=== PATIENT | male | born 1995 | race Caucasian/White ===

== ENCOUNTER 2018-06-30 20:36 | Emergency (ER) | payer OTHER ==
[2018-06-30 20:44] VITALS: BP 108/72
--- NOTE | 2018-06-30 20:53 | EDPHY ---
H & P Stated Complaint: hemmoroids flare up Source: Patient Exam Limitations: No limitations - Personal History Current Tetanus/Diphtheria Vaccine: Yes Current Tetanus Diphtheria and Acellular Pertussis (TDAP): Yes - Medical/Surgical History Hx Asthma: No Hx Chronic Respiratory Disease: No Hx Diabetes: No Hx Cardiac Disease: No Hx Renal Disease: No Hx Cirrhosis: No Hx Alcoholism: No Hx HIV/AIDS: No Hx Splenectomy or Spleen Trauma: No - Social History Smoking Status: Current some day smoker Time Seen by Provider: 06/30/18 20:52 HPI/ROS: HPI: This is a 23-year-old male who presents with Chief Complaint: Hemorrhoid flare up Location: RECTAL Quality: Pain Duration: 2 days Signs and Symptoms: no fever, no nausea, no vomiting, no hematemesis, no blood in stool, no abdominal bloating, no diarrhea, no back pain, no urinary symptoms , no testicular/groin pain, no indigestion, no chest pain, no shortness of breath Timing: Acute, common Severity: Moderate Context: Patient reports that he has a history of anal fissures as a child but he grew out of it when he hit puberty presents with 2 day history of external hemorrhoid flare up. He is a student at [employer]. He had a bowel movement yesterday without any difficulty. He reports that it hurts to touch the area and to sit down. He has not tried any vneg-xip-ttaegrl medications. No primary care provider in the area Modifying Factors: None Comment: ROS: A comprehensive 10 system review of systems is otherwise negative aside from elements mentioned in the history of present illness. MEDICAL/SURGICAL/SOCIAL HISTORY: Medical history: Generally healthy. Does not take any regular medications. Surgical history: Denies Social history: Current every day smoker. Originally from [place]. Family history noncontributory. CONSTITUTIONAL: Nontoxic-appearing adult male, awake and alert, no obvious distress HEENT: Atraumatic and normocephalic, PERRL, EOMI. Nares patent; no rhinorrhea; no nasal mucosal edema. Tympanic membranes clear. Oropharynx clear, no exudate and moist pink mucosa. Airway patent. No lymphadenopathy. No meningismus. Cardiovascular: Normal S1/S2, tachycardia, regular rhythm, without murmur rub or gallop. PULMONARY/CHEST: Symmetrical and nontender. Clear to auscultation bilaterally. Good air movement. No accessory muscle usage. ABDOMEN: Soft, nondistended, nontender, no rebound, no guarding, no peritoneal signs, no masses or organomegaly. No CVAT. RECTAL: Good sphincter tone, light brown stool in vault, 3 o'clock small external cchextchdb-lpxqavzyjklje-gy bleeding, no fissures, no palpable masses, guaiac negative EXTREMITIES: 2/2 pulses, strength 5/5, no deformities, no clubbing, no cyanosis or edema. NEUROLOGICAL: no focal neuro deficits. GCS 15. SKIN: Warm and dry, no erythema. no rash. Good capillary refill. (Maribell Guerin) Constitutional: Initial Vital Signs Temperature (C) 36.8 C 06/30/18 20:42 Heart Rate 112 H 06/30/18 20:42 Respiratory Rate 16 06/30/18 20:42 Blood Pressure 108/72 06/30/18 20:42 O2 Sat (%) 97 06/30/18 20:42 O2 Delivery Mode Room Air Allergies/Adverse Reactions: No Known Allergies Allergy (Unverified 06/30/18 21:10) Home Medications: Medication Instructions Recorded Hydrocortisone/Pramoxine 1 neel RC Q6 PRN #1 btl 06/30/18 [Proctofoam-Hc Foam] Medical Decision Making ED Course/Re-evaluation: One external hemorrhoid present; non thrombosed; nonbleeding. Let topical applied and given a prescription for Proctofoam. Advised to prevent constipation. Guaiac negative. Given general surgery consult. This patient was seen under the supervision of my secondary supervising physician. I evaluated care for this patient independently. Discussed this patient with Dr. Ordoñez. (Maribell Guerin) The patient was evaluated and managed by the physician foundation assistant. I have reviewed this chart and I agree with the findings and plan of care as documented , as indicated by my signature. I am the secondary supervising physician. ( Cherie Ordoñez) Differential Diagnosis: Differential diagnosis includes but is not limited to anal fissure, internal hemorrhoids, thrombosed hemorrhoids, pilonidal cyst, rectal abscess. (Maribell Guerin) - Data Points Medications Given: Discontinued Medications Tetracaine/Epinephrine/Lidocaine (Let Gel Topical) 1 ea TP EDNOW ONE Stop: 06/30/18 20:59 Last Admin: 10/25/18 21:12 Dose: 1 ea Tetracaine/Epinephrine/Lidocaine (Let Gel Topical) 2 ea TP EDNOW ONE Stop: 06/30/18 21:12 Last Admin: 06/30/18 21:12 Dose: 2 ea Departure - Departure Disposition: Home, Routine, Self-Care Clinical Impression: External hemorrhoids without complication Condition: Good Instructions: Hemorrhoids (ED) Additional Instructions: Apply hemorrhoid cream as directed for rectal pain. Take Tylenol 650 mg every 4 hours and/or Ibuprofen 600 mg every 8 hours with food as needed for pain. perform sitz baths for 30 minutes at a time; 2-3 times per day for the next 1-2 days. Prevent constipation and drink plenty of fluids and a diet high in fiber. Use kjpe-slp-micfjbh witch Eliana pads or hemorrhoid pads to wipe after a bowel movement. Referrals: Joseph Santizo MD [Medical Doctor] - As per Instructions Stand Alone Forms: School Excuse Prescriptions: Hydrocortisone/Pramoxine [Proctofoam-Hc Foam] 1 neel RC Q6 PRN #1 btl PRN Reason: Pain, Hemorrhoid
[2018-06-30] MEDS ORDERED: LET GEL TOPICAL 1 EA SYR TP ONE ×3 (20:56→21:11)
== END 2018-06-30 21:32 | disposition home or self-care (01) ==
DX: K64.4 Residual hemorrhoidal skin tags (principal)

== ENCOUNTER 2018-10-03 14:50 | Emergency (ER) | payer OTHER ==
[2018-10-03 14:54] VITALS: BP 111/63
[2018-10-03] MEDS ORDERED: IBUPROFEN 600 MG TAB PO ONE (15:23)
--- NOTE | 2018-10-03 15:26 | EDPHY ---
HPI/HX/ROS/PE/MDM Narrative: CHIEF COMPLAINT: Neck pain HPI: This is a healthy 23 y/o male who presents with persistent upper back and neck pain secondary to a fall during a back flip on a trampoline one week ago. He says he was attempting to flip twice, but in the middle of the second flip he hit his head on the trampoline "and my whole back folded over" in hyperflexion. He had some mild tingling in extremities directly afterwards that has since resolved. He continues to have unimproved upper back and neck pain that is worse with movement, carrying his backpack, or any jarring activities. He has not tried anything for pain. No weakness, paresthesias, fever, vomiting, headache, or other complaints. REVIEW OF SYSTEMS: A comprehensive 10 system review of systems is otherwise negative aside from elements mentioned in the history of present illness. PMH: Denies SOCIAL HISTORY: [employer] student. From [place]. PHYSICAL EXAM: General:Patient is alert, in no acute distress. ENT:Eyes are normal to inspection. ENT inspection normal. Neck: Tenderness around C7 midline, mild bilateral paraspinous tenderness. Full range of motion. Respiratory:No respiratory distress. Breath sounds normal bilaterally. Cardiovascular: Regular rate and rhythm. Strong peripheral pulses. Normal cap refill. Abdomen:The abdomen is nontender to palpation. There are no peritoneal signs. Back: Mild bilateral trapezius tenderness, otherwise normal to inspection. No midline tenderness. Skin: Normal color. No rash. Warm and dry. Extremities: Normal appearance. Full range of motion. Neuro: Oriented x3. Normal motor function. Normal sensory function. No pronator drift. Equal tipping machine operator automatic strength. ED Course: This is a healthy 23 y/o male who presents with a 1-week history of upper back and neck pain secondary to a hyperflexion injury on the trampoline. He has midline tenderness around C7 in addition to cervical paraspinous and bilateral trapezius tenderness. Nonfocal neuro exam. Plan for cervical CT and 600mg PO ibuprofen. Cervical CT: negative. Reevaluated patient and discussed findings. Recommend standard cervical strain care and follow up instructions. Script for Flexeril and ibuprofen instructions provided. Return precautions discussed. He is comfortable with this plan. - Data Points Imaging Results: Imaging Impressions Cervical Spine X-Ray 10/03/18 15:23 Impression:Negative cervical spine radiographs. Comment: If symptoms persist or warrant, additional cross-sectional imaging with CT or MRI may be of benefit. Imaging: Discussed imaging studies w/ fiberglass tube molder Radiologist, I viewed and interpreted images myself Medications Given: Discontinued Medications Ibuprofen (Motrin) 600 mg PO EDNOW ONE Stop: 10/03/18 15:24 Last Admin: 10/03/18 15:36 Dose: 600 mg General Time Seen by Provider: 10/03/18 15:18 Initial Vital Signs: Initial Vital Signs Temperature (C) 36.5 C 10/03/18 14:51 Heart Rate 82 10/03/18 14:51 Respiratory Rate 16 10/03/18 14:51 Blood Pressure 111/63 10/03/18 14:51 O2 Sat (%) 100 10/03/18 14:51 O2 Delivery Mode Room Air Allergies/Adverse Reactions: No Known Allergies Allergy (Unverified 10/03/18 14:51) Home Medications: Medication Instructions Recorded Hydrocortisone/Pramoxine 1 neel RC Q6 PRN #1 btl 06/30/18 [Proctofoam-Hc Foam] Cyclobenzaprine [Flexeril] 10 mg PO TID #7 tab 10/03/18 Departure - Departure Disposition: Home, Routine, Self-Care Clinical Impression: Cervical strain Qualifiers: Encounter type: initial encounter Qualified Code(s): S16.1XXA - Strain of muscle, fascia and tendon at neck level, initial encounter Condition: Good Instructions: Cervical Strain (ED) Additional Instructions: 1. Take ibuprofen and Tylenol as directed for pain and inflammation over the next few days. 2. You can try applying intermittent ice packs and heating pads on sore areas if helpful for pain. 3. Take Flexeril as prescribed as needed for muscle relaxation. This medication can make you drowsy. Do not use prior to driving. 4. Follow up with back specialist in the next week. 5. Return to the ED for worsening of condition. Adult Pain & Fever Control: We recommend Acetaminophen (Tylenol) and Ibuprofen (Motrin,Advil) for pain and fever control. When fever is high or pain severe, both drugs can be used at the same time, but at different intervals. Please note the time differences. Your dose is: Acetaminophen 650mg every 4 to 6 hours Ibuprofen 600mg every 8 hours with food Note: do not take Acetaminophen with Hydrocodone (Vicodin, Lortab) or Oxycodone (Percocet). These medications also contain Acetaminophen. No more than 3000mg of Acetaminophen should be taken in 24 hours (for an adult). Referrals: Adrián Hernandez MD [Medical Doctor] - As per Instructions Prescriptions: Cyclobenzaprine [Flexeril] 10 mg PO TID #7 tab Report Scribed for: Grzegorz Wood Report Scribed by: Gabriela Tinajero Date of Report: 10/03/18 Time of Report: 15:26 Physician Review and Approval Statement: Portions of this note were transcribed by an ED scribe. I personally performed the history, physical exam, and medical decision making; and confirm the accuracy of the information in the transcribed note.
== END 2018-10-03 16:20 | disposition home or self-care (01) ==
DX: S16.1XXA Strain of muscle, fascia and tendon at neck level, initial encounter (principal); W19.XXXA Unspecified fall, initial encounter; Y93.44 Activity, trampolining; Y92.9 Unspecified place or not applicable; Y99.8 Other external cause status

== ENCOUNTER 2019-01-19 11:30 | Emergency (ER) | payer OTHER ==
[2019-01-19] MEDS ORDERED: LET GEL TOPICAL 1 EA SYR TP ONE (11:42)
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
[2019-01-19 13:42] VITALS: BP 116/75
== END 2019-01-19 13:42 | disposition home or self-care (01) ==
DX: S80.811A Abrasion, right lower leg, initial encounter (principal); S80.812A Abrasion, left lower leg, initial encounter; S80.11XA Contusion of right lower leg, initial encounter; S80.12XA Contusion of left lower leg, initial encounter; V86.96XA Unspecified occupant of dirt bike or motor/cross bike injured in nontraffic accident, initial encounter; Y93.89 Activity, other specified